=== PATIENT | female | born 1975 | race Two or more races ===

== ENCOUNTER 2017-09-08 10:26 | Day surgery (SDC) | payer BC ==
[~2017-09-08] VITALS: Ht 160 cm; Wt 88.5 kg
[2017-09-08] MEDS ORDERED: PROPOFOL 0 ML ONE (10:48)
[2017-09-08 11:06] VITALS: Ht 160 cm; Wt 88.5 kg
[2017-09-08] MEDS ORDERED: LIDOCAINE 4% SOLUTION 50 ML BTL ONE (11:09)
[2017-09-08] MEDS ORDERED: LEVO100T87 PO (11:09)
--- NOTE | 2017-09-08 11:33 | OPPN ---
Date/Time of Note Date/Time of Note DATE: 09/08/17 TIME: 11:28 Proc Note GI Procedure Date 09/08/17 Indication: diagnostic Pre-procedure Diagnosis dysphagia Post-procedure Diagnosis esophageal stricture with ulcer Procedure Performed: Endoscopy Surgeon see signature line Assembler Surgical Garment none Anesthesia Type: moderate sedation Tourniquet Time none EBL none Transfusion required none Biopsy 1: esophagus and gastric bx Grafts/Implants none Tubes/Drains none Complication(s) none Procedure Description egd done with mod sedation esophageal stricture with ulcer noted at 30 cm gastritis mild noited ALVARO FRANKEL MD Sep 08, 2017 11:33
--- NOTE | 2017-09-08 11:33 | OPPN ---
Date/Time of Note Date/Time of Note DATE: 09/08/17 TIME: 11:28 Proc Note GI Procedure Date 09/08/17 Indication: diagnostic Pre-procedure Diagnosis dysphagia Post-procedure Diagnosis esophageal stricture with ulcer Procedure Performed: Endoscopy Surgeon see signature line Balance Engineer none Anesthesia Type: moderate sedation Tourniquet Time none EBL none Transfusion required none Biopsy 1: esophagus and gastric bx Grafts/Implants none Tubes/Drains none Complication(s) none Procedure Description egd done with mod sedation esophageal stricture with ulcer noted at 30 cm gastritis mild noited ALVARO FRANKEL MD Sep 08, 2017 11:33
[2017-09-08] MEDS ORDERED: FENTAnyl 50 MCG/ML VIAL ONE (11:40)
[2017-09-08] MEDS ORDERED: MIDAZOLAM 1 MG/ML 2 ML INJ ONE ×2 (11:40)
--- NOTE | 2017-09-09 06:30 | GILP ---
DATE OF PROCEDURE: 09/08/2017 PROCEDURE: Esophagogastroduodenoscopy. PREOPERATIVE DIAGNOSIS: Patient presenting with a history of difficulty in swallowing solid foods, rule out esophagitis, esophageal stricture, neoplasm, etc. POSTOPERATIVE DIAGNOSES: 1. Esophageal stenosis noted at 30 cm from the incisor teeth. There is evidence of a circumferenti al ulcer noted at the site as well. Biopsies were done. 2. Mild gastritis was noted in a diffuse pattern. Biopsy was done to rule out Helicobacter pylori infection. DESCRIPTION OF PROCEDURE: After informed written consent was obtained, the patient was asked to lie on the left lateral side, 3 mg Versed and 75 mg of fentanyl were given as intravenous anesthesia. When the patient became somnolent, the Olympus video upper endoscope was introduced into the orophar ynx, then into the esophagus. Esophagus showed evidence of a stricture at about 30 cm from the inci sor teeth. At the stricture there was evidence of a circumferential ulcer also noted, which is a sm all ulcer occupying the stricture area. The scope was gently advanced through the stricture into th e stomach. The stomach showed a mildly diffuse erythema, indicating mild gastritis. Biopsy was don e from the antrum and the fundus to rule out H. pylori infection. The mucosa of the duodenum was ex amined up to the end of the third portion, which appeared normal. Scope at this time was withdrawn, no additional abnormalities detected, and the procedure was terminated. PLAN: Recommend Nexium 40 mg twice a day. Dictated By: ALVARO ROMERO/NORM Conf#: [id number] DID#: [id number]
== END 2017-09-08 21:06 | disposition home or self-care (01) ==
LOC: GIL 10:26
PROVIDERS: ATTEND Internal Medicine Gastroenterology
DX: K22.2 Esophageal obstruction (principal); K22.10 Ulcer of esophagus without bleeding; K29.70 Gastritis, unspecified, without bleeding; K21.0 Gastro-esophageal reflux disease with esophagitis
CPT/HCPCS: 43239; 84703; 88305; 88313; J2250; J3010; Z7610